=== PATIENT | female | born 2000 | race Caucasian/White ===

== ENCOUNTER → 2019-06-13 11:41 | Outpatient (CLI) | payer OTHER, SELFPAY ==
[2019-06-13 10:35] VITALS: BMI 38.7
[2019-06-13 12:13] LABS: Absolute Lymphocyte Count 2.41 X10^3/uL (0.83-4.51); Absolute Neutrophil Count 6.9 X10^3/uL (2.0-7.7); Basophil# 0.03 X10^3/uL; Basophil% 0.3 % (0-1); Eosinophil# 0.18 X10^3/uL; Eosinophils% 1.8 % (0-5); Hematocrit 39.9 % (37-47); Hemoglobin 12.6 g/dL (12.0-15.0); Lymphocyte # 2.41 X10^3/ul (4.0); Lymphocyte % 23.8 % (19-41); Mean Corp Hgb Conc 31.6 g/dL (32-36); Mean Corpuscular Hgb 27.5 pg (27.0-32.0); Mean Corpuscular Volume 87.1 fL (81-99); Mean Platelet Vol. 9.9 fl (6.2-12.0); Monocyte# 0.58 X10^3/uL; Monocyte% 5.7 % (0-10); NRBC Flagged by Analyzer 0 % (0-5); Neutrophil # 6.89 X10^3/uL (2.7-7.7); Platelet Count 333 K/mm3 (150-450); RBC Distribution Width CV 13.6 % (11.6-14.6); RBC Distribution Width SD 42.5 fl (35.1-43.9); Red Blood Count 4.58 M/mm3 (4.2-5.4); White Blood Count 10.1 K/mm3 (4.4-11.0)
[2019-06-13 13:23] LABS: HIV - WCH Non-Reactive (Nonreactive); Hepatitis B Surface Antigen Non-Reactive (Nonreactive); Hepatitis C Antibody Non-Reactive (Nonreactive); Rubella IgG 236.1 IU/mL
[2019-06-13 15:14] LABS: Amphetamine Urine VISTA NEGATIVE (<1000 ng/mL); Barbiturate Urine VISTA NEGATIVE (< 200 ng/mL); Benzodiazepine Urine VISTA NEGATIVE (< 200 ng/mL); Cocaine Urine VISTA NEGATIVE (< 300 ng/mL); Ecstacy Urine VISTA NEGATIVE (< 500 ng/mL); Methadone Urine VISTA NEGATIVE (< 300 ng/mL); PCP Urine VISTA NEGATIVE (< 25 ng/mL); THC Urine VISTA NEGATIVE (< 50 ng/mL); Vista UDS pH Range 5
[2019-06-14 11:57] LABS: Chlamydia Trachomatis by PCR Negative (Negative); Neisserai gonorrhoeae by PCR Negative (Negative); Probe Check PASS; Sample Adequacy Control PASS; Specimen Processing Control PASS
[2019-06-14 19:20] LABS: V-Zoster IgG (Immunity) < 135 index (Immune >165)
[2019-06-15 23:59] LABS: Rapid Plasmin Reagin (RPR) NONREACTIVE (NONREACTIVE)
== END ==
LOC: LAB 11:43 → PAVLAB 14:33
PROVIDERS: PCP Nurse Practitioner Family; Referring Provider Obstetrics & Gynecology; Visit Provider Obstetrics & Gynecology
DX: Z34.90 Encounter for supervision of normal pregnancy, unspecified, unspecified trimester (principal)
CPT/HCPCS: 80307; 85025; 86592; 86703; 86762; 86787; 86803; 86850; 86900; 86901; 87086; 87088; 87340; 87491; 87591

== ENCOUNTER → 2019-06-22 14:27 | Outpatient (CLI) | payer OTHER, SELFPAY ==
[2019-06-13 10:35] VITALS: BMI 38.7
[2019-06-22 14:35] VITALS: BP 129/69; PULSE 86; RESP 16; TEMP 36.6; O2SAT 97; BMI 44.9
[2019-06-22] MEDS: Dextrose 5%-Lactated Ringers 1,000 ML 999 ML IV (15:23)
[2019-06-22] MEDS: 0.9% NaCl Peripheral Flush Adult/Peds IV (15:24)
[2019-06-22] MEDS: Ondansetron 4 MG/2 ML Vial IV (15:30)
== END ==
PROVIDERS: PCP Nurse Practitioner Family; Referring Provider Obstetrics & Gynecology; Visit Provider Obstetrics & Gynecology
DX: E86.0 Dehydration (principal)
CPT/HCPCS: 96361; 96374; A4216; J2405

== ENCOUNTER → 2019-10-18 14:28 | Outpatient (CLI) | payer OTHER, SELFPAY ==
[2019-09-23 14:02] VITALS: BMI 44.9
[2019-10-18 14:51] LABS: Absolute Lymphocyte Count 2.23 X10^3/uL (0.83-4.51); Absolute Neutrophil Count 12.3 X10^3/uL (2.0-7.7); Basophil# 0.03 X10^3/uL; Basophil% 0.2 % (0-1); Eosinophils% 1.3 % (0-5); Hematocrit 34.1 % (37-47); Hemoglobin 10.9 g/dL (12.0-15.0); Lymphocyte # 2.23 X10^3/ul (4.0); Lymphocyte % 14.4 % (19-41); Mean Corpuscular Hgb 28.9 pg (27.0-32.0); Mean Corpuscular Volume 90.5 fL (81-99); Monocyte# 0.69 X10^3/uL; Monocyte% 4.4 % (0-10); NRBC Flagged by Analyzer 0 % (0-5); Neutrophil # 12.29 X10^3/uL (2.7-7.7); Neutrophil % 79.2 % (47-70); Platelet Count 309 K/mm3 (150-450); RBC Distribution Width CV 13.1 % (11.6-14.6); RBC Distribution Width SD 42.5 fl (35.1-43.9); Red Blood Count 3.77 M/mm3 (4.2-5.4); White Blood Count 15.5 K/mm3 (4.4-11.0)
[2019-10-18 15:26] LABS: Glucose Challenge Gest 1H 50g 103 mg/dL (70-140)
== END ==
PROVIDERS: PCP Nurse Practitioner Family; Referring Provider Obstetrics & Gynecology; Visit Provider Obstetrics & Gynecology
DX: Z34.90 Encounter for supervision of normal pregnancy, unspecified, unspecified trimester (principal); E86.0 Dehydration
CPT/HCPCS: 36415; 82950; 85025

== ENCOUNTER → 2019-11-15 15:22 | Outpatient (CLI) | payer MEDICAID, SELFPAY ==
[2019-09-23 14:02] VITALS: BMI 44.9
[2019-11-15 15:01] VITALS: BMI 44.9
--- NOTE | 2019-11-15 15:23 | US_ITS ---
STUDY: SECOND AND THIRD TRIMESTER OBSTETRICAL ULTRASOUND REASON FOR EXAM: Female, 19 years old. Growth. LMP: 04/07/2019. TECHNIQUE: Transabdominal TECHNICAL QUALITY: Adequate. PRIOR ULTRASOUND: None. FINDINGS: There is a single intrauterine fetus. The fetus is in a cephalic presentation. There is demonstrated cardiac activity with a heart rate of 147 bpm. There is a normal amniotic fluid volume. The largest amniotic fluid pocket measures 3.41 cm. The amniotic fluid index (LATA) is 10.26 cm. The placenta is anterior in location and is not low lying. There are Grade 1 placental changes. The cervix measures 2.9 cm in length. The bilateral adnexal regions are normal. BIOMETRY: BPD: 7.6 cm: 30 weeks, 3 days HC: 29.17 cm: 32 weeks, 1 days AC: 28 cm: 32 weeks, 0 days FL: 5.88 cm: 30 weeks, 4 days CI: FL/BPD: 77.41 FL/HC: FL/AC: 21 HC/AC: age by current US: 31 weeks, 1 days. MICHELLE by current US: 01/16/2020. Estimated weight: 1775 grams, +/- 266 grams, 49 %. Age by LMP: 31 weeks, 5 days. MICHELLE by LMP: 01/12/2020. US/OB Limited With Biometrics IMPRESSION: 1. Live single intrauterine at 31 weeks, 1 day. MICHELLE is 01/16/2020. 2. EFW 1775 g. 3. LATA of 10.26 cm 4. Anterior grade 1 placenta. 5. Vertex presentation. Electronically Signed: Xavier Alvarez DO at 23:00 EDT Tel [phone], Service support ,
== END ==
PROVIDERS: PCP Nurse Practitioner Family; Referring Provider Obstetrics & Gynecology; Visit Provider Obstetrics & Gynecology
DX: O09.90 Supervision of high risk pregnancy, unspecified, unspecified trimester (principal); Z3A.00 Weeks of gestation of pregnancy not specified
CPT/HCPCS: 76816

== ENCOUNTER → 2019-12-15 15:49 | Outpatient (CLI) | payer MEDICAID, SELFPAY ==
[2019-09-23 14:02] VITALS: BMI 44.9
[2019-12-15 14:57] VITALS: BMI 44.6
--- NOTE | 2019-12-15 15:50 | US_ITS ---
STUDY: SECOND AND THIRD TRIMESTER OBSTETRICAL ULTRASOUND REASON FOR EXAM: Female, 19 years old GROWTH LMP: 04/07/2019 TECHNIQUE: Transabdominal TECHNICAL QUALITY: Adequate. PRIOR ULTRASOUND: None. FINDINGS: There is a single intrauterine fetus. The fetus is in a cephalic presentation. There is demonstrated cardiac activity with a heart rate of 167 bpm. There is a normal amniotic fluid volume. The largest amniotic fluid pocket measures 5.6 cm. The amniotic fluid index (LATA) is 11 cm. The placenta is anterior in location and is not low lying. There are Grade 1 placental changes. The cervix measures 2.9 cm in length. The adnexal regions are not visualized. BIOMETRY: BPD: 8.3 cm: 33 weeks, 4 days HC: 31.9: 36 weeks, 0 days AC: 32.2 cm: 36 weeks, 1 days FL: 6.8 cm: 34 weeks, 6 days CI: 77 FL/BPD: 2 FL/AC: 21 HC/AC: 0.99 age by current US: 35 weeks, 1 days. MICHELLE by current US: 01/18/2020. Estimated weight: 2680 grams, +/- 391 grams, 35 %. Age by LMP: 36 weeks, 0 days. MICHELLE by LMP: 01/12/2020. US/OB Limited With Biometrics IMPRESSION: 35 weeks 1 day intrauterine . Electronically Signed: Buddy Wells MD at 21:32 EDT , Service support ,
== END ==
PROVIDERS: PCP Nurse Practitioner Family; Referring Provider Obstetrics & Gynecology; Visit Provider Obstetrics & Gynecology
DX: O09.90 Supervision of high risk pregnancy, unspecified, unspecified trimester (principal); Z3A.36 36 weeks gestation of pregnancy
CPT/HCPCS: 76816; 87081

== ENCOUNTER → 2020-01-05 17:54 | Outpatient (CLI) | payer MEDICAID, SELFPAY ==
[2019-12-08 15:22] VITALS: BMI 44.6
[2020-01-05 15:26] VITALS: BMI 45.0
== END ==
PROVIDERS: PCP Nurse Practitioner Family; Referring Provider Obstetrics & Gynecology; Visit Provider Obstetrics & Gynecology
DX: Z11.59 Encounter for screening for other viral diseases (principal); E86.0 Dehydration
CPT/HCPCS: 87635; C9803; U0003

== ENCOUNTER 2020-01-11 17:33 | Inpatient (IN) | payer MEDICAID, SELFPAY ==
[2019-09-23 14:02] VITALS: BMI 44.9
[2020-01-11] VITALS (24 sets, daily range): BP systolic 98–164; BP diastolic 53–94; PULSE 96–245; TEMP 36.1–36.9; O2SAT 81–100; BMI 45.6; BMI 45.7
--- NOTE | 2020-01-11 18:11 | PCM.HPOB.BLA ---
- Problem List (1) Rupture of membranes with clear amniotic fluid Status: Acute (2) 36 weeks gestation of Status: Acute Comment: NEGATIVE (3) Anemia affecting , antepartum Status: Acute Comment: add fe (4) Back pain Status: Acute Qualifiers: (5) Cervicogenic headache Status: Acute (6) Depression affecting Status: Acute Comment: counseling, decline medicine. (7) Influenza vaccination declined Status: Acute (8) Obesity Status: Acute Qualifiers: Comment: encouraged healthy weight gain. BMI over 40 plan weekly nsts and q4 week US after 32 weeks. first trimester screening in [place]. Repeat 1h gtt normal. normal US 12/14 (9) Status: Acute Qualifiers: Comment: genetic, ntd, and carrier screening declines. Anatomy US normal (10) Segmental and somatic dysfunction of cervical region Status: Acute (11) Segmental and somatic dysfunction of lumbar region Status: Acute (12) Segmental and somatic dysfunction of sacral region Status: Acute (13) Segmental and somatic dysfunction of thoracic region Status: Acute (14) Supervision of high risk , antepartum Status: Acute Comment: PRR MICHELLE 01/12/20 girl PC Chloe Dangelo (15) Susceptible to varicella (non-immune), currently Status: Acute Comment: Recommended to get Varicella PP History and Physical Date of Admission: 01/11/20 Intake Vital Signs 01/11/20 Height 5 ft 6 in 01/11/20 Weight: 282 lb 6 oz 01/11/20 BP 112/68 Intake Visit Reasons: 40 WK OB/NST Scheduler Conveyor Required: No Is patient in pain?: No Allergies No Known Allergies Allergy (Verified 01/11/20 15:02) Medications bianca (Zingiber officinalis) 250 mg capsule 250 mg PO DAILY 06/13/19 [History Confirmed 01/11/20] pyridoxine (vitamin B6) 50 mg tablet 50 mg PO DAILY 06/13/19 [History Confirmed 01/11/20] ondansetron HCl 4 mg tablet 4 mg PO Q8H PRN #30 tab 10/18/19 [Rx Confirmed 01/11/20] vitamin #56-iron 35 mg and 5 mg-folic acid 1 mg-dha capsule 1 cap PO QHS #30 cap 10/18/19 [Rx Confirmed 01/11/20] ferrous sulfate 325 mg (65 mg iron) tablet 325 mg PO DAILY 11/15/19 [History Confirmed 01/11/20] Last Menstral Period: 04/07/19 Zika: Zika virus screening: Negative : No PFSH PFSH Medical History H/O emotional problems (Chronic) Hx of migraine headaches (Chronic) Family History Grandfather Cancer lung- smoker Social History (Updated 01/11/20 @ 16:[address] Kalli Cesar MD) Smoking Status: Never smoker alcohol intake: never substance use type: does not use caffeine: Yes seatbelt use: always do you feel safe at home: Yes additional social history: [employer] Patient is a stay at home mom Pregancy History 2 Elective abortions Hx Para 1 Spontaneous abortions Hx # Term Pregnancies Ectopic pregnancies Hx # Pregnancies Multiple births # of living children Past Pregnancies Del. Date Name GA/Weeks Outcome Route Bth Weight Gen Labor Lgth Anesthesia Del Locatn Provider FOB Unknown 2017 [place] 39 live - full term 8lbs 3oz Female [address] [facility] [address] Jordan ([place]) Delivery Date: Induction at 39w5d due to dr preference No complications Margo Graff HPI 40 WK OB/NST: Details: OMAR COBB is a 19 year old who presents for routine OB visit. OB Visit MICHELLE Calculator Estimated Delivery Date Method Current WG Current Estimate 01/12/20 LMP (Certain) 39w 6d Expected Delivery Route/Plan Labor Preferences- CB/BF classes: no labor support person: Dangelo labor intervention preferences: open to massage and touch, considering tub in labor pain management options preferred: desires natural but open to epidural if needed cut cord/dad catch: cord : yes PP control planned: [] discussed possible routes of delivery and associated risks: discussed possible delivery modalities and possible indications for each including R/B/A of , VAVD, FAVD, and CS. questions answered. special requests: none Specific Issue/Plans flu vaccine: declines tdap vaccine: declines rhogam: na LARC form signed: yes Problem list reviewed and updated with the most current plan of care details and appropriate orders placed. Relevant counseling for the gestational age provided. Continue routine care and follow up unless otherwise noted in visit notes/problem list details Initial Weight: 276 lb Date EGA Weight BP Urine Prot Glucose FHR FuHt Pres Dilation Effaced St Visit Note 06/13/19 9w 4d 276 lb (+0 oz) 112/76 170 07/27/19 15w 6d 273 lb (-3 lb) 104/80 Negative Negative 151 MH-NO VB, LOF. Nausea better last 3 days. 08/22/19 19w 4d 211 lb 6 oz (-64 lb 10 oz) 271 lb (-5 lb) 120/76 145 SM- no vb lof good fm no regular ctx anatomy us today 09/23/19 24w 1d 272 lb (-4 lb) 100/72 Negative Negative 145 24 SM- no vb lof good fm no regular ctx 10/18/19 27w 5d 274 lb (-2 lb) 120/60 164 28 MH-No VB, LOF. Good FM 28 wk labs today. Declines tdap MH-No VB, LOF. Good FM 28 wk labs today. Declines tdap. Unable to void. Mild frontal headache today. No vision changes. Normal BP. Had not tried tylenol and will. MH-No VB, LOF. Good FM 28 wk labs today. Declines tdap. Unable to void. Mild frontal headache today. No vision changes. Normal BP. Had not tried tylenol and will. Anemia and will add fe. 11/04/19 30w 1d 274 lb 6 oz (-1 lb 10 oz) 120/70 Negative Negative 150 30 GP - no LOF, VB, DFM, ctx. Doing well. Discussed labor interventions. Breech on exam today. 11/15/19 31w 5d 274 lb (-2 lb) 108/80 Negative Negative 146 31 MH-No VB, LOF. Good FM. Will start weekly NST next week. Growth US today 11/24/19 33w 0d 277 lb (+16 oz) 12/01/19 34w 0d 275 lb (-16 oz) 114/60 Negative Negative 150 34 Cephalic GP - no LOF, VB, DFM. Irregular ctx. 12/15/19 36w 0d 277 lb (+16 oz) 102/66 Negative Negative 145 36 Cephalic 1 50 -2 SM- no vb lof good fm nor egular ctx 12/23/19 37w 1d 276 lb (+0 oz) 124/78 Negative Negative 140 37 Cephalic SM- no vb lof good fm no regular ctx 12/29/19 38w 0d 276 lb 4 oz (+4 oz) 110/60 Negative Negative 140 38 Cephalic 2 60 -2 GP - No LOF, VB, DFM, regular ctx. Membranes stripped. Discussed routes of delivery. 01/05/20 39w 0d 279 lb (+3 lb) 120/74 Negative Negative 140 39 Cephalic 3 70 SM- no vb lof good fm n oregular ctx 01/11/20 39w 6d 282 lb 6 oz (+6 lb 6 oz) 112/68 150 39 Cephalic 3 70 -2 GP - no VB, DFM, regular ctx. ROM during membrane sweeping in the office. Sent to labor and delivery. ACOG First Trimester First Trimester: Desire for , Alcohol, Tobacco Cessation, Illicit/Recreational Drug/Substance Use, Intimate Partner Violence, Barriers to care, Unstable Housing, Communication Barriers, Environmental/Work Hazards, Anticipated Course of Care, Toxoplasmosis Precations, Use of Any medications, Sexual activity, Exercise, Dental Care, Sauna/Hot tub use, Seat Belt use, Childbirth classes/Hospital facilities, , Travel, Indications for US and Screening for Aneuploidy Second Trimester Second Trimester: Signs and Symptoms of Labor, Selecting a care provider, Reproductive Life Planning, Care Planning, Tobacco Cessation, Depression/Anxiety and Intimate Partner Violence Third Trimester Third Trimester: Pain Management Plans, Labor support person(s), Immediate Larc, Movement Monitoring and Infant Feeding Yes ; discussed Trial of Labor after Counseling or discussed Circumcision preference Diagnostics Diagnostics Details: HIV: Urine Culture: Sequential Screen: NIPT Screen: ROS Const Reports system reviewed and no additional complaints, except as docu Eyes Reports system reviewed and no additional complaints, except as docu ENT Reports system reviewed and no additional complaints, except as docu Card Reports system reviewed and no additional complaints, except as docu Resp Reports system reviewed and no additional complaints, except as docu GI Reports system reviewed and no additional complaints, except as docu Reports system reviewed and no additional complaints, except as docu, Denies abnormal vaginal bleeding, Denies painful urination, Denies nipple discharge, Denies pelvic pain, Denies vaginal discharge, Denies vaginal odor, Denies vaginal itching Musc Reports system reviewed and no additional complaints, except as docu Skin/Breast Reports system reviewed and no additional complaints, except as docu, Denies nipple discharge Neuro Yes system reviewed and no additional complaints, except as docu Psych Reports system reviewed and no additional complaints, except as docu Endo Reports system reviewed and no additional complaints, except as docu Exam Const General: cooperative, healthy appearing, comfortable, no acute distress, well developed, well groomed Nutritional Appearance: average body habitus, well nourished Orientation: alert, awake, oriented x3 HENMT Head: normal to inspection, normocephalic, atraumatic Eyes Pupils: PERRL, accommodation normal Resp Effort & Inspection: normal respiratory effort, able to speak in complete sentences, symmetric chest movement Cardio Rate: regular rate GI Palpation: soft, no guarding, no masses, nontender Skin General: no rashes or lesions noted, elasticity normal, turgor normal Neuro General: alert, awake, oriented x3 Cranial Nerves: CN's II-XI intact bilaterally, sense of smell intact, PERRL, accommodation normal, EOM intact bilaterally Speech: speech normal Gait: normal gait Psych Appearance: grossly normal, well kempt Mental Status: mental status grossly normal Mood: congruent mood Affect: normal affect Speech and Movement: speech and movement normal Attitude: cooperative Thought Process: normal Thought Content: normal Judgment: judgment good Office Procedures OB NST Non-Stress Test Indications for Monitoring: Yes Morbid obesity Heart Rate Baseline: 150 Heart Rate Variability: moderate Movement: Present Heart Rate Accelerations: Present Decelerations: Absent Contractions: Absent Impression: Yes Reactive Non-Stress Test Assessment & Plan Problems 1. Back pain M54.9 2. 36 weeks gestation of Z3A.36 NEGATIVE 3. Segmental and somatic dysfunction of sacral region M99.04 4. Segmental and somatic dysfunction of lumbar region M99.03 5. Cervicogenic headache R51 6. Segmental and somatic dysfunction of thoracic region M99.02 7. Segmental and somatic dysfunction of cervical region M99.01 8. Influenza vaccination declined Z28.21 9. Anemia affecting , antepartum O99.019 add fe 10. Susceptible to varicella (non-immune), currently O09.899; Z28.3 Recommended to get Varicella PP 11. Depression affecting O99.340; F32.9 counseling, decline medicine. 12. Obesity E66.9 encouraged healthy weight gain. BMI over 40 plan weekly nsts and q4 week US after 32 weeks. first trimester screening in [place]. Repeat 1h gtt normal. normal US 12/14 13. 39 weeks gestation of Z3A.39 genetic, ntd, and carrier screening declines. Anatomy US normal 14. Supervision of high risk , antepartum O09.90 PRR MICHELLE 01/12/20 girl PC Chloe Dangelo Plan Patient presents IAL, plan expectant management for , pitocin if needed. Pain management: plans natural labor GBS negative. Management of any complications: none I have reviewed the [facility] and made any clinically relevant updates. Orders Orders: OB NST Today E66.9 POC Urinalysis 2 Dip (Clinic) Today Plan Detail Goals Decrease pain and spasm Improve ROM Improve sleep Barriers Carrying small child Coding Level of Care Code Off vis,est,level 3 Diagnoses Back pain M54.9 36 weeks gestation of Z3A.36 Segmental and somatic dysfunction of sacral region M99.04 Segmental and somatic dysfunction of lumbar region M99.03 Cervicogenic headache R51 Segmental and somatic dysfunction of thoracic region M99.02 Segmental and somatic dysfunction of cervical region M99.01 Influenza vaccination declined Z28.21 Anemia affecting , antepartum O99.019 Susceptible to varicella (non-immune), currently O09.899; Z28.3 Depression affecting O99.340; F32.9 Obesity E66.9 39 weeks gestation of Z3A.39 ??Weeks of gestation: 39 weeks Supervision of high risk , antepartum O09.90 Additional Codes Non-Stress Test (09280) UPDATE- I have seen the patient and performed any clinically relevant updates to the history and physical exam. Kalli Cesar MD
[2020-01-11 18:27] LABS: Absolute Lymphocyte Count 2.05 X10^3/uL (0.83-4.51); Absolute Neutrophil Count 9.6 X10^3/uL (2.0-7.7); Basophil# 0.02 X10^3/uL; Basophil% 0.2 % (0-1); Eosinophil# 0.16 X10^3/uL; Eosinophils% 1.3 % (0-5); Hematocrit 38.2 % (37-47); Hemoglobin 11.9 g/dL (12.0-15.0); Lymphocyte # 2.05 X10^3/ul (4.0); Lymphocyte % 16.6 % (19-41); Mean Corp Hgb Conc 31.2 g/dL (32-36); Mean Corpuscular Hgb 27.9 pg (27.0-32.0); Mean Corpuscular Volume 89.5 fL (81-99); Mean Platelet Vol. 10.2 fl (6.2-12.0); Monocyte# 0.45 X10^3/uL; Monocyte% 3.7 % (0-10); NRBC Flagged by Analyzer 0 % (0-5); Neutrophil # 9.58 X10^3/uL (2.7-7.7); Neutrophil % 77.7 % (47-70); Platelet Count 319 K/mm3 (150-450); RBC Distribution Width CV 14.5 % (11.6-14.6); RBC Distribution Width SD 46.6 fl (35.1-43.9); Red Blood Count 4.27 M/mm3 (4.2-5.4); White Blood Count 12.3 K/mm3 (4.4-11.0)
[2020-01-11] MEDS: Lactated Ringers 500 ML 999 ML IV (22:08)
[2020-01-11] MEDS: 0.9% Saline Lock 10 ML Syringe IV (22:09)
[2020-01-11] MEDS: Lactated Ringers 1,000 ML 200 ML IV (22:38)
[2020-01-11] MEDS: fentaNYL-bupivacaine (epidural) 100 ML BAG EPIDURAL (23:25)
[2020-01-12] VITALS (20 sets, daily range): BP systolic 97–124; BP diastolic 51–63; PULSE 88–131; RESP 16; TEMP 36.1–37; O2SAT 99–100
[2020-01-12] MEDS: Oxytocin 30 units/NS 500 ml 30 UNITS/500 ML IV.SOLN 334 UNITS IV (00:45)
--- NOTE | 2020-01-12 00:51 | PCM.OPRPT ---
Problem List (1) Rupture of membranes with clear amniotic fluid Status: Acute (2) 36 weeks gestation of Status: Acute Comment: NEGATIVE (3) Anemia affecting , antepartum Status: Acute Comment: add fe (4) Back pain Status: Acute Qualifiers: (5) Cervicogenic headache Status: Acute (6) Depression affecting Status: Acute Comment: counseling, decline medicine. (7) Influenza vaccination declined Status: Acute (8) Obesity Status: Acute Qualifiers: Comment: encouraged healthy weight gain. BMI over 40 plan weekly nsts and q4 week US after 32 weeks. first trimester screening in [place]. Repeat 1h gtt normal. normal US 12/14 (9) Status: Acute Qualifiers: Comment: genetic, ntd, and carrier screening declines. Anatomy US normal (10) Segmental and somatic dysfunction of cervical region Status: Acute (11) Segmental and somatic dysfunction of lumbar region Status: Acute (12) Segmental and somatic dysfunction of sacral region Status: Acute (13) Segmental and somatic dysfunction of thoracic region Status: Acute (14) Supervision of high risk , antepartum Status: Acute Comment: PRR MICHELLE 01/12/20 girl PC Chloe Dangelo (15) Susceptible to varicella (non-immune), currently Status: Acute Comment: Recommended to get Varicella PP Vaginal Delivery Maternal Presentation: Spontaneous Rupture of Membranes 19-year-old at 40 weeks gestation admitted for rupture of membranes. Patient made cervical change to complete dilation without any form of augmentation. Amniotic Membrane Rupture Type: Spontaneous Amniotic Fluid Description: Clear Final MICHELLE: 01/12/20 Gestational age: 40 Weeks and 0 Days Date of Procedure: 01/12/20 Pre-Operative Diagnosis: Term , spontaneous rupture of membranes, active labor Post-Operative Diagnosis: Same Surgery/ Procedure Performed: Spontaneous Vaginal Delivery Type of Anesthesia: Epidural Description of Procedure: Patient began pushing and delivered the head in the ALLEY presentation. The head was delivered atraumatically and no nuchal cord was identified. The anterior and posterior shoulders delivered without complication followed by the rest of the and the infant was placed on the maternal abdomen. Delayed cord clamping was employed for approximately 60 seconds. Cord was clamped and cut and gentle traction was applied to the cord and the placenta delivered spontaneously immediately following it was noted to be intact with three-vessel cord. The perineum and vagina were inspected and no laceration was noted. EBL was 200 cc. Patient and infant tolerated delivery well. Presentation: Vertex, ALLEY Placental Delivery Description: Spontaneous Placenta Disposition: [facility] Cord Vessel Description: 3 Vessels Cord Entanglement: None Estimated Blood Loss: 200 cc A gender: Female Episiotomy Description: None Laceration: None Medications given after delivery: IV Pitocin Complications: None Multi Select Codes - Urinary/Genital Urinary/Genital CPT Codes: 34269 Vaginal Delivery+ Care([facility])
[2020-01-12] MEDS: Ibuprofen 600 MG Tablet PO (20:48)
[2020-01-13 00:55] VITALS: BP 102/46; PULSE 86; RESP 16; TEMP 36.4
[2020-01-13 04:11] VITALS: BP 134/66; PULSE 92; RESP 14; TEMP 36.4
--- NOTE | 2020-01-13 05:54 | DCINST_ITS ---
Discharge Diet: No Restrictions Discharge Activity: Return to Normal Activity, May not drive while taking narcotic pain medications., May Shower May resume sexual activity in: 4-6 weeks Additional Activity Instructions:: Nothing in the vagina for 4-6 weeks. You may return to work/school in 6 weeks. Call your doctor if your incision/area has: Continuous Slow Oozing, Sudden Increased Bleeding, Increased Pain/ Swelling, Increased Redness, Foul Smelling Discharge Additional Instructions: If you experience any of the following, contact your healthcare provider. * Bleeding that soaks a pad every hour for 2 hours * Fever 100.4 or higher * Unrelieved incision or abdominal pain * Swelling, redness, discharge or bleeding from your incision or episiotomy site * Your incision begins to separate * Problems urinating (including inability to urinate or burning while urinating). * Visual changes * Severe headache * Flu-like symptoms * Pain or redness in one of both of your breasts * Pain, warmth, tenderness or swelling in your legs, especially the calf area * Frequent nausea and vomiting * Symptoms of depression or anxiety If you experience any of the following, call 911 or go to the nearest Emergency Room. * Chest pain * Problems breathing * Seizure activity * Partial or complete paralysis of a body part, slurred speech, weakness or drooping of the face, or a sudden inability to walk or hold your balance Allergies/Adverse Reactions: Allergies No Known Allergies Allergy (Verified 01/11/20 17:53) Medications to take at Discharge pyridoxine (vitamin B6) 50 mg tablet 50 mg PO DAILY 06/13/19 ondansetron HCl 4 mg tablet 4 mg PO Q8H PRN #30 tab 10/18/19 ferrous sulfate 325 mg (65 mg iron) tablet 325 mg PO DAILY 11/15/19 vitamin #56-iron 35 mg and 5 mg-folic acid 1 mg-dha capsule 1 cap PO QHS 01/11/20 When: Call to make an appointment with your doctor in 6 weeks. If you had elevated Blood Pressure or 4th degree laceration you will need to be seen in 2 weeks. Primary Care Physician: Barbara Sue NP, [employer] [Primary Care Provider] - Test Results: Test results from this visit will be discussed in further detail at your follow- up appointment, if applicable.
--- NOTE | 2020-01-13 05:56 | PCM.PN.OB ---
Patient Problems: Active and Suspected Problems (Last Reviewed 01/11/20 @ 15:03 by Lenka Thompson) Rupture of membranes with clear amniotic fluid (Acute) Back pain (Acute) 36 weeks gestation of (Acute) NEGATIVE Segmental and somatic dysfunction of sacral region (Acute) Segmental and somatic dysfunction of lumbar region (Acute) Cervicogenic headache (Acute) Segmental and somatic dysfunction of thoracic region (Acute) Segmental and somatic dysfunction of cervical region (Acute) Influenza vaccination declined (Acute) Anemia affecting , antepartum (Acute) add fe Susceptible to varicella (non-immune), currently (Acute) Recommended to get Varicella PP Depression affecting (Acute) counseling, decline medicine. Obesity (Acute) encouraged healthy weight gain. BMI over 40 plan weekly nsts and q4 week US after 32 weeks. first trimester screening in [place]. Repeat 1h gtt normal. normal US 12/14 (Acute) genetic, ntd, and carrier screening declines. Anatomy US normal Supervision of high risk , antepartum (Acute) PRR MICHELLE 01/12/20 girl PC Chloe Dangelo Subjective: Patient doing well without complaints. Tolerating PO. Ambulating and voiding without difficulty. Breast feeding well. Denies chest pain, shortness of breath, calf pain/swelling, fevers, chills, lightheadedness. - Physical Exam Vitals/I&O's: Vital Signs Temp Pulse Resp BP Pulse Ox 97.6 F L 92 14 134/66 H 100 01/13/20 04:11 01/13/20 04:11 01/13/20 04:11 01/13/20 04:11 01/12/20 00:06 Oxygen Delivery Method Room Air Weight: 283 lb 8.231 oz Body Mass Index (BMI) 45.7 Intake and Output for Last 24 Hours 01/11/20 01/12/20 01/13/20 23:59 23:59 23:59 Intake Total 499.5 / 499.5 923.33 / 923.33 Output Total 200 / 200 Balance 499.5 / 499.5 723.33 / 723.33 General: Alert, Oriented x3, Cooperative, No apparent distress, Well developed, Well nourished HEENT: Atraumatic, PERRLA, EOMI, Normocephalic Neck: Supple, No JVD Lungs: Normal air movement Cardiovascular: Regular rate Abdomen: Soft, Non Tender, Non-Distended, - - fundus firm Extremities: No edema, No Calf Tenderness Neurological: Cranial nerves II-XII grossly intact, Neuro grossly intact Psych/Mental Status: Normal Affect, Appropriate Current Medications Acetaminophen (Acetaminophen 500 Mg Tablet) 1,000 mg PO Q8H PRN PRN PRN Reason: Pain Score 1-3 Bisacodyl (Bisacodyl 10 Mg Suppository) 10 mg RECTAL UD PRN PRN Reason: If no BM Dibucaine (Dibucaine 30 Gm Tube) 1 applic TOPICAL TID PRN PRN; Protocol PRN Reason: Discomfort Hydrocortisone (Hydrocortisone 2.5% Crm) 1 applic TOPICAL TID PRN PRN; Protocol PRN Reason: Discomfort Ibuprofen (Ibuprofen 600 Mg Tablet) 600 mg PO Q6H PRN PRN PRN Reason: Pain Score 1-3 Last Admin: 01/12/20 20:48 Dose: 600 mg Documented by: Methylergonovine Maleate (Methylergonovine 0.2 Mg/Ml Ampul) 0.2 mg IM X1 PRN PRN Reason: Excess bleeding/uterine atony Ondansetron HCl (Ondansetron 4 Mg/2 Ml Vial) 4 mg IV Q4H PRN PRN PRN Reason: Nausea Oxycodone HCl (Oxycodone 5 Mg Tablet) 5 - 10 mg PO Q4H PRN PRN PRN Reason: Pain Score 4-10 Senna/Docusate Sodium (Senna/Docusate Sodium 1 Tablet) 1 - 2 tablet PO DAILY PRN PRN PRN Reason: Constipation Simethicone (Simethicone 80 Mg Tablet) 80 mg PO PCHS PRN PRN Reason: Indigestion/Stomach pain Sodium Chloride (0.9% Saline Lock 10 Ml Syringe) 5 - 15 ml IV UD PRN PRN Reason: SALINE FLUSH Medical Necessity - Tobacco Use Smoking Status: Never smoker Assessment/Plan All Active Problems (Last Reviewed 01/11/20 @ 15:03 by Lenka Thompson) Rupture of membranes with clear amniotic fluid (Acute) Back pain (Acute) 36 weeks gestation of (Acute) Segmental and somatic dysfunction of sacral region (Acute) Segmental and somatic dysfunction of lumbar region (Acute) Cervicogenic headache (Acute) Segmental and somatic dysfunction of thoracic region (Acute) Segmental and somatic dysfunction of cervical region (Acute) Influenza vaccination declined (Acute) Anemia affecting , antepartum (Acute) Susceptible to varicella (non-immune), currently (Acute) Depression affecting (Acute) Obesity (Acute) (Acute) Supervision of high risk , antepartum (Acute) Cervicogenic headache (Resolved) Segmental and somatic dysfunction of cervical region (Resolved) Segmental and somatic dysfunction of thoracic region (Resolved) s/p PPD # 1 1. routine post delivery care 2. breast feeding- support given 3. rh positive 4. rubella immune
[2020-01-13 08:19] VITALS: BP 135/60; PULSE 96; RESP 16; TEMP 36.4
[2020-01-13 13:56] VITALS: BP 111/74; PULSE 103; RESP 16; TEMP 36.6
== END 2020-01-13 15:05 | disposition home or self-care (01) | DRG 560 ==
LOC: WP 17:34
PROVIDERS: Admitting Provider Obstetrics & Gynecology; PCP Nurse Practitioner Family; Referring Provider Obstetrics & Gynecology; Visit Provider Obstetrics & Gynecology
DX: O99.02 Anemia complicating childbirth (principal); D64.9 Anemia, unspecified; Z37.0 Single live birth; O99.214 Obesity complicating childbirth; M99.01 Segmental and somatic dysfunction of cervical region; M99.02 Segmental and somatic dysfunction of thoracic region; M99.03 Segmental and somatic dysfunction of lumbar region; M99.04 Segmental and somatic dysfunction of sacral region; Z3A.40 40 weeks gestation of pregnancy
CPT/HCPCS: 59025; 59050; 85025; 86850; 86900; 86901; 99218; J7120; A4216; G0378

== ENCOUNTER → 2020-03-01 12:23 | Outpatient (CLI) | payer MEDICAID, SELFPAY ==
[2020-02-20 14:12] VITALS: BMI 42.4
[2020-03-01 14:14] LABS: Absolute Lymphocyte Count 2.68 X10^3/uL (0.83-4.51); Absolute Neutrophil Count 6.8 X10^3/uL (2.0-7.7); Basophil# 0.04 X10^3/uL; Basophil% 0.4 % (0-1); Eosinophils% 2.8 % (0-5); Hematocrit 42.1 % (37-47); Hemoglobin 13.3 g/dL (12.0-15.0); Lymphocyte # 2.68 X10^3/ul (4.0); Lymphocyte % 25.3 % (19-41); Mean Corp Hgb Conc 31.6 g/dL (32-36); Mean Corpuscular Hgb 28.2 pg (27.0-32.0); Mean Corpuscular Volume 89.2 fL (81-99); Mean Platelet Vol. 9.8 fl (6.2-12.0); Monocyte# 0.73 X10^3/uL; Monocyte% 6.9 % (0-10); NRBC Flagged by Analyzer 0 % (0-5); Neutrophil # 6.81 X10^3/uL (2.7-7.7); Neutrophil % 64.3 % (47-70); Platelet Count 348 K/mm3 (150-450); RBC Distribution Width CV 13.5 % (11.6-14.6); RBC Distribution Width SD 43.8 fl (35.1-43.9); Red Blood Count 4.72 M/mm3 (4.2-5.4); White Blood Count 10.6 K/mm3 (4.4-11.0)
== END ==
PROVIDERS: PCP Nurse Practitioner Family; Referring Provider Nurse Practitioner Women's Health; Visit Provider Nurse Practitioner Women's Health
DX: D50.9 Iron deficiency anemia, unspecified (principal); E86.0 Dehydration
CPT/HCPCS: 36415; 85025